=== PATIENT | male | born 1940 | race Caucasian/White ===

== ENCOUNTER 2017-02-24 19:39 | Emergency (ER) | payer OTHER ==
[~2017-02-24] VITALS: Ht 182.9 cm; Wt 80.0 kg
[2017-02-24 20:26] LABS: HEMATOCRIT 40.7 % (38.0-50.0); MCH 30.5 PG (29.0-34.0); MCHC 33.9 G/DL (30.0-36.0); MCV 89.8 FL (86-99); MEAN PLAT.VOLUME 9.8 uM^3 (9.0-12.4); RBC DIS.WIDTH-CV 13.5 % (11.8-14.6); RBC DIS.WIDTH-SD 44.2 % (39-53); RED BLOOD COUNT 4.53 M/uL (4.00-5.50); WHITE BLOOD COUNT 10.5 K/uL (4.1-10.2)
[2017-02-24 20:28] LABS: PLATELET COUNT 404 K/uL (156-360)
[2017-02-24 20:33] LABS: CHLORIDE 98 mEq/L (99-109); POTASSIUM 4.1 mEq/L (3.7-5.4); SODIUM 135 mEq/L (136-147)
[2017-02-24 20:35] LABS: GLUCOSE 136 mg/dL (70-99)
[2017-02-24 20:36] LABS: ANION GAP 13 MEQ/L (2-14)
[2017-02-24 20:37] LABS: TOTAL BILIRUBIN 0.7 mg/dL (0.0-1.0)
[2017-02-24 20:39] LABS: ALKALINE PHOSPHATASE 110 IU/L (3-129); GFR ESTIMATE (CALCULATED) 57 mL/min/
[2017-02-24 20:40] LABS: UREA NITROGEN (BUN) 23 mg/dL (9-23)
[2017-02-24 23:24] VITALS: BP 117/64
== END 2017-02-24 23:24 | disposition home or self-care (01) ==
LOC: EME 19:39
DX: K59.00 Constipation, unspecified (principal); Z96.651 Presence of right artificial knee joint; I10 Essential (primary) hypertension; N40.0 Benign prostatic hyperplasia without lower urinary tract symptoms
CPT/HCPCS: 74176; 80053; 81003; 85027; 99281; 99284